=== PATIENT | male | born 1995 | race American Indian/Alaskan Native ===

== ENCOUNTER 2017-11-06 18:27 | Emergency (ER) | payer SELFPAY ==
[2017-11-06 18:47] VITALS: BP 127/74
[2017-11-06] MEDS ORDERED: D5NS 0.2% 1,000 ML IV SCH (19:00)
[2017-11-06 19:16] LABS: Hematocrit 23.6 % (35.5-45.6); Mean Corpuscular HGB Conc 34 % (32-34); Mean Corpuscular Hemoglobin 31 pg (28-32); Mean Corpuscular Volume 90 fl (84-94); Platelet Count 469 K/mm3 (140-440); Red Blood Count 2.61 M/mm3 (3.65-5.03)
[2017-11-06 19:18] LABS: Red Cell Distribution Width 27.4 % (13.2-15.2)
[2017-11-06 20:33] LABS: Basophils % (Manual) 0 % (0.0-1.8); Myelocytes # (Manual) 0.6 K/mm3; Total Cells Counted 100
[2017-11-06 20:34] LABS: Platelet Estimate Consistent w Auto; Sickle Cells 2+
[2017-11-06 20:35] LABS: Anisocytosis 2+; Spherocytes Few; Target Cells 1+
== END 2017-11-06 20:10 | disposition left against medical advice (07) ==
LOC: ED 18:27
DX: D57.1 Sickle-cell disease without crisis (principal); Z53.21 Procedure and treatment not carried out due to patient leaving prior to being seen by health care provider
CPT/HCPCS: 36415; 85007; 85025; 85045